=== PATIENT | female | born 1960 | race Caucasian/White ===

== ENCOUNTER 2020-10-07 11:59 | Inpatient (IN) | payer OTHER ==
[~2020-10-07] VITALS: Ht 167.6 cm; Wt 99.3 kg
[~2020-10-07 11:59] MED LIST: ALEVE220 M1 PO; CBD OIL TOP; MAGNESIUM L-LAC84 MG PO; VITAMIN B COMP1 EACH PO; VITAMIN D3250 MC2 PO; ZYPAN PO; [UNRECOGNIZED DRUG - OTHER] PO; [UNRECOGNIZED DRUG - OTHER] PO; [UNRECOGNIZED DRUG - OTHER] PO; [UNRECOGNIZED DRUG - OTHER] PO
[2020-10-07 14:00] VITALS: BP 146/71
[2020-10-07 17:28] VITALS: BP 140/60
--- NOTE | 2020-10-07 18:16 | NUR ---
PATIENT ARRIVED TO UNIT FROM PACU WITH A RIGHT TOTAL KNEE REPLACEMENT DONE BY DR. COLLAZO. PATIENT IS A&OX4 AND INSTRUCTED ON HOW TO USE THE CALL LIGHT. PATIENT VOICES MILD PAIN ON R KNEE. PATIENT EDUCATED ON ASKING FOR PAIN MEDICATION BEFORE PAIN GETS SEVERE. SPOUSE IS AT BEDSIDE. WILL ENDORSE TO NOC RN.
[2020-10-07 19:20] VITALS: BP 157/74
[2020-10-08 05:12] LABS: HEMATOCRIT 36.1 % (37.0-47.0); HEMOGLOBIN 12.2 gm/dL (12.0-15.0); MCH 30.8 pg (26.0-34.0); MCHC 33.7 g/dL (28.0-37.0); MCV 91.3 fL (80.0-100.0); RBC 3.95 mil/uL (4.20-5.00); RDW 13.2 % (10.5-14.5); WBC 11.2 thou/uL (4.0-11.0)
[2020-10-08 07:58] VITALS: BP 128/68
--- NOTE | 2020-10-08 08:09 | NUR ---
RECEIVED CARE OF THIS PATIENT AT 1900. PATIENT ALERT AND ORIENTED X4. ERNST DRESSING ON R KNEE INTACT WITH TEDS AND SCD'S. HAS POLAR ICE MACHINE. ACCUCHECK WAS 246, NO COVERAGE ORDERED. STATES CONTROLS BY DIET AT HOME. IV IN RH PATENT WITH FLUIDS INFUSING. C/O PAIN, MED GIVEN. SLEPT MOST OF NIGHT.
[2020-10-08 11:16] VITALS: BP 128/68
--- NOTE | 2020-10-08 11:54 | NUR ---
PT ADMITTED RELATED TO RIGHT TOTAL KNEE REPLACEMENT. CM REVIEWED CHART AND SPOKE WITH CARE TEAM. CM MET WITH PT AT BEDSIDE THIS DAY. PT APPEARED TO BE A&O X4. CM ROLE INTROUCED. PT INDICATED SHE RESIDES IN A HOUSE WITH HER SPOUSE WITH 6-7 STEPS TO ENTER AND NONE INSIDE. 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 PT INDICATED SHE HAD BEEN INDEPENENT WITH ADLS. PT INDICATED HER PCP IS DR. SOLIS MCDANIELS. SHE IS SET UP WITH OP PT WEDNESDAY AT [facility] IN [facility]. PT ANTICIPATES RETURNING HOME ONCE MEDICALLY STABLE. PT NEEDS A FWW FOR USE UPON DC. PT INDICATED NO PREFRENCE FOR PROVIDERS. [facility] ISSUED FWW. PT TO WORK WITH PT THIS AFTERNOON AND MAY DC AFTER IF PAIN IS MANAGED AND MOBILITY IS SAFE.
--- NOTE | 2020-10-08 15:18 | NUR ---
ASSUMED CARE OF PT AT 0700 THIS MORNING.
[2020-10-08 15:21] VITALS: BP 108/53
[2020-10-08 19:18] VITALS: BP 148/67
--- NOTE | 2020-10-09 02:37 | NUR ---
ASSESSED AT START OF SHIFT, PT A&OX4. C/O PAIN IN RT KNEE. RATES PAIN 6/10 PO PAIN MEDS GIVEN. IV INTACT AND SALINE LOCK. POLAR PACK, SCD'S, TEDHOSE IN PLACE. PT DENIES N/V. ANTICIPATING D/C TOMORROW. FALL PREC IN PLACE AND CALL LIGHT AT REACH. WILL CONT TO MONITOR.
[2020-10-09 05:25] LABS: HEMATOCRIT 34.7 % (37.0-47.0); HEMOGLOBIN 11.9 gm/dL (12.0-15.0); MCHC 34.3 g/dL (28.0-37.0); MCV 90.4 fL (80.0-100.0); RBC 3.83 mil/uL (4.20-5.00); RDW 12.9 % (10.5-14.5); WBC 6.3 thou/uL (4.0-11.0)
[2020-10-09 07:20] VITALS: BP 126/55
--- NOTE | 2020-10-09 12:29 | NUR ---
BOAR WITH PT WORKED WIHT PT THIS AM AND HE INDICATED THAT PT WAS STILL HAVING ISSUES WITH AMBULATION. HE IS TO SEE PT AGAIN THIS AFTERNOON. PT HAS HER FWW DELIVERED BY PP. IRVIN FOLLOWING REGARDING DC PLANNING.
--- NOTE | 2020-10-09 12:32 | O ---
[facility] [place] [address] OPERATIVE REPORT Name: BURTON CONNOR Room #: 458-P [facility] M.R.#: [id number] Admission: 10/07/20 Attend Phys: Renny Soni MD Discharge: Date of : 60 Report #: [id number] THIS REPORT FOR: cc: Renny Soni MD Physician not on staff Renny Soni MD ~ DOC #: [id number] Renny Soni MD DATE OF SERVICE: 10/07/2020 PREOPERATIVE DIAGNOSIS: Right knee osteoarthritis. POSTOPERATIVE DIAGNOSIS: Right knee osteoarthritis. PROCEDURE: Right total knee arthroplasty using Navio robotic-assisted. SURGEON: Renny Soni MD. CABLE TOOL OPERATOR: Lidia Alejandre PA-C. INDICATION FOR CABLE TOOL OPERATOR: Throughout the case, extensive retraction and manipulation of the knee was required. This was afforded to me by my volleyball assistant coach. ANESTHESIA: LMA with adductor canal block. IMPLANTS: Martinez [employer] Nephew size 6 Journey II BCS Oxinium femur, size 4, tibia, size 11 constrained polyethylene, size 32 patella. TOURNIQUET TIME: 57 minutes. ESTIMATED BLOOD LOSS: ____ mL COMPLICATIONS: None. SPECIMENS: None. CONDITION UPON LEAVING THE OR: Stable. INDICATIONS FOR PROCEDURE: The patient is a 59-year-old female with severe right knee osteoarthritis. She had failed conservative measures for this and after discussion with her, she elected for right total knee arthroplasty. DESCRIPTION OF PROCEDURE: Risks, benefits, alternatives, complications were discussed in detail with the patient including but not limited to risk of anesthesia, risk of damage to nerves, arteries, blood vessels, risk for infection, bleeding, risk for continued knee pain, need for reoperation. [facility] [address] [place] [address] OPERATIVE REPORT Name: GEETABURTON Room #: 458-P [facility] Bess Campos#: [id number] Admission: 10/07/20 Attend Phys: Renny Soni MD Discharge: Date of : 60 Report #: [id number] Informed consent was obtained from the patient. The right knee was appropriately marked in preoperative holding area. IV Ancef was given for preoperative antibiotics. She was brought to the operating room and placed in supine position on the operating table. LMA anesthesia was induced without complication. Tourniquet was placed on the right thigh. Right lower extremity was prepped and draped in normal sterile fashion and implants on. All in the operating room were in agreement. Right lower extremity was exsanguinated and tourniquet inflated. Tourniquet time was 57 minutes. Standard midline approach to the knee was made with 10 blade through the skin. Dissection was taken down sharply to the fascia. Deep flaps were developed medially and laterally. A fresh 10 blade was used to make a medial parapatellar arthrotomy and the knee was inspected. There was severe tricompartmental osteoarthritis. ACL and PCL were removed sharply. Reference pins were placed in the femur and the tibia and the knee was digitally mapped using [employer] robotic system. Intraoperative plan was made and the femur was sized and found to be a size 6, tibia was found to be a size 4 with a 10 spacer. After acceptance of the intraoperative plan, distal femoral cut was made with a Navio bur and the distal femoral cutting block was pinned in place and chamfer cuts were made. Attention was turned to the tibia. Remainder of the menisci removed with Bovie cautery. Tibial resection guide was pinned in place using Navio for replacement. Tibial resection was made. After this, flexion and extension gaps were checked and found to be somewhat tight medially and a medial release was performed with subperiosteal dissection of the MCL off the medial plateau and a resection of the medial tibial plateau osteophyte. This balanced the medial side well. After this, tibia was sized and found to be a size 4. Size 4 tibial trial was placed, pinned and punch. A size 6 femoral trial was placed and the box cut was made. This was then trialed with a size 10 and then a size 11 polyethylene. Size 11 polyethylene demonstrated 1-2 mm laxity medially throughout range of motion of the knee. She did demonstrate up to 4 mm of laxity laterally. It was felt we can make up for this with a constrained implant. A 9 mm of bone was resected from the posterior surface of the patella and a size 32 patellar trial button was placed. Knee was taken through range of motion, found to be stable, found to have good patellar tracking. Trial components were removed. Bone ends thoroughly irrigated with normal saline. Final size 4, tibia size 6 Journey II BCS Oxinium femur and a size 32 patella were cemented in place using standard cementation techniques. While the cement cured, a periarticular injection consisting of morphine, ropivacaine, epinephrine, Toradol was placed around the knee joint capsule. After the cement cured, tourniquet was deflated. Hemostasis was obtained with Bovie cautery. A final size 11 constrained polyethylene was placed. A gram of vancomycin was placed deep in the joint, fascia was closed with 0 Vicryl. Skin was closed with 2-0 Vicryl, skin johnathon and a ERNST dressing was applied. The patient tolerated this procedure well and went to the recovery room under care of anesthesia postoperatively. Renny Soni MD [address] [address] OPERATIVE REPORT Name: BURTON CONNOR Room #: 458-P [facility] Bess M.R.#: [id number] Admission: 10/07/20 Attend Phys: Renny Soni MD Discharge: Date of : 60 Report #: [id number] [facility]/MELINDA/ANI <ELECTRONICALLY SIGNED> By: Renny Soni MD 10/09/20 1232 1727 195 Renny Soni MD /nt
--- NOTE | 2020-10-09 12:51 | NUR ---
ASSUMED PT CARE AROUND 0700.PT ALERT X ORIENTED X4. ON ROOM AIR. IV RT HAND SALINE LOCKED. 1 X PERSON ASST WITH WALKER.PICCO DRESIING/TEDS/POLAR ICE PACK/SCDS IN PLACE. NO SKIN ISSUES. PT WORKED WITH PHYSICAL THERAPY, WAS NOT ABLE TO CLIMB STEPS, GOT DIZZY AND CLAMMY WHILE TRYING STEPS. FALL PRECAUTION IN PLACE. CALL IN REACH. WILL CALL APPROPRIATELY. WILL CONT TO MONITOR. ACCUCHECK AND ACHS.
[2020-10-09 15:25] VITALS: BP 145/60
[2020-10-09 15:34] LABS: CALCIUM 9.9 mg/dL (8.5-10.1); CREATININE 0.9 mg/dL (0.6-1.0); POTASSIUM 4.4 mmol/L (3.5-5.1)
[2020-10-09 17:40] LABS: FOLIC ACID 27.1 ng/mL (8.6-58.9)
[2020-10-09 19:19] VITALS: BP 147/57
[2020-10-10 01:06] LABS: GLYCOHEMOGLOBIN (HGB A1C) 7.2 % (4.8-5.6)
[2020-10-10 05:57] LABS: ABSOLUTE NEUTROPHILS 5.7 thou/uL (1.4-8.2); BASOPHILS 0.2 % (0.0-2.0); EOSINOPHILS 0.5 % (0.0-3.0); HEMATOCRIT 36.6 % (37.0-47.0); HEMOGLOBIN 12.4 gm/dL (12.0-15.0); LYMPHOCYTES 22.1 % (24.0-44.0); MCH 30.7 pg (26.0-34.0); MCV 90.4 fL (80.0-100.0); MONOCYTES 7.3 % (1.0-8.0); PLATELET COUNT 203 thou/uL (150-400); POLYS 69.9 % (36.0-66.0); RBC 4.04 mil/uL (4.20-5.00); RDW 12.8 % (10.5-14.5); WBC 8.1 thou/uL (4.0-11.0)
--- NOTE | 2020-10-10 06:00 | NUR ---
Pt. rested quietly at intervals during the night when checked on during frequent rounds. She was given po pain med (see emar) for c/o right knee pain (see emar) with some relief noted. Dressing to right knee is intact. Bed alarm is on.
[2020-10-10 06:14] LABS: CALCIUM 10.3 mg/dL (8.5-10.1); CREATININE 0.8 mg/dL (0.6-1.0); MAGNESIUM 1.5 mg/dL (1.8-2.4); POTASSIUM 4.1 mmol/L (3.5-5.1)
[2020-10-10 07:30] VITALS: BP 141/63
--- NOTE | 2020-10-10 09:00 | NUR ---
PT SITTING UP IN CHAIR WITH POLAR CARE TO RT KNEE. PT STATED HER PAIN LEVEL IS 5 ON 1-10 SCALE. PT STATED SHE DID TAKE NARCOTIC AND GOT REALY DIZZY WITH IT AND NAUSEATED. PT HAS IV FLUIDS NS RUNNING AT 126ML/HR. PT WANTING TO TAKE TYLENOL THIS AM. PT GETTING READY TO WORK WITH PHYSICAL THERAPY AND WANTING TO USE BSC TO VOID OR HAVE BM. PT STATED THE MIRALAX IS WORKING. PT UP VIA WALKER TO BSC X1 STAND-BY ASSIST.
--- NOTE | 2020-10-10 09:07 | NUR ---
PT GETTING MAG 2GM AT THIS TIME IV X1. PT STATED SHE DOES TAKE MAG AT HOME PO. PT BACK FROM THERAPY.
--- NOTE | 2020-10-10 09:08 | NUR ---
ADM TYLENOL 325MG 2 TABS PO FOR PAIN TO RT KNEE OF 5 ON 1-10 SCALE. ABLE TO SL IV PER DR. DYSON. PT GETTING READY TO WORK WITH THERAPY.
[2020-10-10 09:10] VITALS: BP 141/63
--- NOTE | 2020-10-10 11:56 | NUR ---
CARE TEAM INDICATED THAT PT IS MEDICALLY STABLE TO DC HOME TO SELF CARE THIS DAY. PT IS SET UP WITH OUTPATIENT PT. PT WAS ISSUED A FWW BY [facility]. PT IS TO DC HOME THIS DAY. PT'S FAMILY TO PROVIDE TRANSPORT HOME. NO OTHER CM INTERVENTION INDICATED CASE CLOSED.
--- NOTE | 2020-10-10 12:49 | NUR ---
ADM HYDROCODONE 5MG PO FOR PAIN TO RT KNEE OF 5 ON 1-10 SCALE. PT STATED SHE IS READY TO GO HOME.
--- NOTE | 2020-10-10 15:06 | NUR ---
PT GETTING READY TO LEAVE PT VERBALY UNDERSTOOD D/C ORDERS. ADM TYLENOL 325MG 2 TABS PO FOR PAIN OF 3 ON 1-10 SCALE TO RT KNEE. PT LEFT VIA W/C TO CAR. PT LEFT WITH POLAR CARE.
== END 2020-10-10 15:20 | disposition home or self-care (01) | DRG 470 ==
LOC: OR 11:59 → 4W 17:03
PROVIDERS: Nurse Practitioner; ADMIT Orthopaedic Surgery; ATTEND Orthopaedic Surgery
DX: M17.11 Unilateral primary osteoarthritis, right knee (principal); R73.9 Hyperglycemia, unspecified; T40.605A Adverse effect of unspecified narcotics, initial encounter; Y92.89 Other specified places as the place of occurrence of the external cause; Z86.73 Personal history of transient ischemic attack (TIA), and cerebral infarction without residual deficits
CPT/HCPCS: 10047; 50010; 50101; 50415; 51130; 51225; 51320; 51412; 52001; 52282; 53000; 53078; 53365; 56527; 56528; 57095; 57103; 57110; 57127; 57180; 62110; 62900; 70005

== ENCOUNTER → 2021-04-14 | Outpatient (CLI) | payer OTHER ==
[~2021-04-14] MED LIST changes: +BIOTIN10000 MC1 PO; +TRAMADOL 50 MG50 MG PO
[2021-04-14 11:24] LABS: HEMATOCRIT 41.7 % (37.0-47.0); HEMOGLOBIN 14.5 gm/dL (12.0-15.0); MCH 30.4 pg (26.0-34.0); MCHC 34.7 g/dL (28.0-37.0); MCV 87.6 fL (80.0-100.0); RBC 4.76 mil/uL (4.20-5.00); RDW 13.7 % (10.5-14.5); WBC 5.1 thou/uL (4.0-11.0)
--- NOTE | 2021-04-14 11:35 | EKG ---
[address] [address] ELECTROCARDIOGRAM REPORT Name: GEETABURTON Sharmaine Room #: [facility]#: [id number] Admission: 04/14/21 Attend Phys: Renny Soni MD Discharge: Date of : 60 Report #: [id number] [facility] Test Date: 2021-04-14 Test Time: 11:19:02 Pat Name: BURTON CONNOR Department: Room: Gender: F Eyeglass Frames Polisher: Kena LOZOYA : 1960 Requested By: Renny Soni Order Number: [id number] MD: Flavio Jimenez Measurements Intervals [place] Rate: 69 P: 48 DC: 167 QRS: -16 QRSD: 87 T: 29 QT: 379 QTc: 406 Interpretive Statements Sinus rhythm Borderline left axis deviation Compared to ECG 10/02/2020 11:16:58 No significant changes Electronically Signed On 04-14-2021 11:35:23 [employer]SEM[employer]ER by Flavio Jimenez [email or web address] <ELECTRONICALLY SIGNED> By: Flavio Jimenez MD, [facility] 04/14/21 1135 D: [id number] 18 Flavio Jimenez MD, FACC /EPI
[2021-04-14 11:41] LABS: ALBUMIN 4.1 g/dL (3.4-5.0); CALCIUM 10.3 mg/dL (8.5-10.1); CREATININE 0.8 mg/dL (0.6-1.0); POTASSIUM 4.1 mmol/L (3.5-5.1)
[2021-04-14 11:42] LABS: INR 0.97; PROTIME 10.6 Seconds (10.5-12.1)
[2021-04-14 11:46] LABS: URINE BILIRUBIN NEGATIVE (Negative); URINE BLOOD NEGATIVE (Negative); URINE CLARITY CLEAR; URINE COLOR YELLOW; URINE GLUCOSE-RANDOM* NEGATIVE (Negative); URINE KETONES NEGATIVE (Negative); URINE LEUKOCYTES-REFLEX NEGATIVE (Negative); URINE NITRITE-REFLEX NEGATIVE (Negative); URINE PROTEIN (DIPSTICK) NEGATIVE (Negative); URINE SPECIFIC GRAVITY 1.015 (1.005-1.035); URINE UROBILINOGEN 0.2 E.U./dl (0.2-1.0)
[2021-04-15 01:06] LABS: GLYCOHEMOGLOBIN (HGB A1C) 8.4 % (4.8-5.6)
== END ==
LOC: PAC 05:57
PROVIDERS: ATTEND Orthopaedic Surgery
DX: M17.11 Unilateral primary osteoarthritis, right knee (principal)

== ENCOUNTER 2021-04-21 09:12 | Observation (INO) | payer OTHER ==
[~2021-04-21] VITALS: Ht 167.6 cm; Wt 98.0 kg
[2021-04-21 11:50] VITALS: BP 156/66
[2021-04-21 16:10] VITALS: BP 148/74
--- NOTE | 2021-04-21 18:20 | NUR ---
Pt transferred from unit from PACU. Pt a&ox4. Dressing c/d/i. Polar care in place. YENY and SCDs in place. IVF infusing. Pt is diabetic. Blood sugar 284 befire dinner. Surgeon radha. Hospitalist consulted. IVF switched no normal saline. Insulin administered. Call light within reach. Family at bedside. Will continue to monitor.
[2021-04-21 19:52] VITALS: BP 132/61
--- NOTE | 2021-04-22 04:00 | NUR ---
Left knee with ERNST drsg c/d/i, as well as polar melany.Denies any nausea or vomiting.RA and in no signs of distress.Voiding adequately. Afebrile. Left foot with good CSM.
[2021-04-22 04:23] VITALS: BP 122/65
[2021-04-22 05:08] LABS: ABSOLUTE NEUTROPHILS 8.5 thou/uL (1.4-8.2); BASOPHILS 0.1 % (0.0-2.0); HEMATOCRIT 35.5 % (37.0-47.0); HEMOGLOBIN 12.2 gm/dL (12.0-15.0); LYMPHOCYTES 10.4 % (24.0-44.0); MCH 30.5 pg (26.0-34.0); MCHC 34.5 g/dL (28.0-37.0); MCV 88.4 fL (80.0-100.0); MONOCYTES 5.1 % (1.0-8.0); PLATELET COUNT 213 thou/uL (150-400); POLYS 84.4 % (36.0-66.0); RBC 4.01 mil/uL (4.20-5.00); RDW 13.5 % (10.5-14.5)
[2021-04-22 05:39] LABS: CALCIUM 9.4 mg/dL (8.5-10.1); CREATININE 0.8 mg/dL (0.6-1.0); MAGNESIUM 1.7 mg/dL (1.8-2.4); POTASSIUM 4.2 mmol/L (3.5-5.1)
[2021-04-22 07:10] VITALS: BP 152/75
--- NOTE | 2021-04-22 09:38 | NUR ---
Assumed care of pt at 0700. Pt a&ox4. Pain controlled with prn pain medications. Polar care in place. IVF infusing. Patient will work with physical therapy. Possible d/c to home today if cleared by physical therapy. Call light within reach. Fall precautions in place. Will continue to monitor.
--- NOTE | 2021-04-22 09:45 | NUR ---
60 year old female, had a Navio total knee elective surgery yesterday. Cm visited with her at bedside. She is A & o x 4, pleasant and able to make her needs know. Has 5 steps to enter the home from the back door, then all on the main level. Independent. Has a walker. manage her own medication. Drives vehicle. No hh or skilled rehab in the past. Have outpatient therapy set up at [facility] on Wednesday04/23/21 per irene.
[2021-04-22 12:04] VITALS: BP 152/75
--- NOTE | 2021-04-24 10:49 | O ---
[facility] [place] [address] OPERATIVE REPORT Name: BURTON CONNOR Room #: 441-P [facility] Bess Campos#: [id number] Admission: 04/21/21 Attend Phys: Rneny Soni MD Discharge: 04/22/21 Date of : 60 Report #: [id number] THIS REPORT FOR: cc: FAM - Family physician unknown FAM - Family physician unknown Renny Soni MD ~ DATE OF SERVICE: 04/21/2021 PREOPERATIVE DIAGNOSIS: Left knee osteoarthritis. POSTOPERATIVE DIAGNOSIS: Left knee osteoarthritis. PROCEDURE: Left total knee arthroplasty using Navio robotic assistance. SURGEON: Renny Carreno MD BELT NOTCHER: Lidia Alejandre PA-C. INDICATION FOR BELT NOTCHER: Throughout the case, extensive retraction, manipulation of the knee was required. This was afforded to me by my bindery assistant. ANESTHESIA: LMA with adductor canal block. IMPLANTS: Martinez [employer] Nephew size 6 Journey II BCS Oxinium femur, size 4 tibia, size 13 constrained polyethylene and size 32 patella. TOURNIQUET TIME: 65 minutes. ESTIMATED BLOOD LOSS: 25 mL. COMPLICATIONS: None. SPECIMENS: None. CONDITION UPON LEAVING THE OR: Stable. INDICATIONS FOR PROCEDURE: The patient is a 60-year-old female with severe left knee osteoarthritis. She had failed conservative measures for this and after discussion with her, she elected for left total knee arthroplasty. DESCRIPTION OF PROCEDURE: Risks, benefits, alternatives, complications were discussed in detail with the patient including but not limited to risk of anesthesia, risk of damage to nerves, arteries, blood vessels, risk for infection, bleeding, risk for continued knee pain and need for reoperation. Informed consent was obtained from the patient. Left knee was appropriately marked in the preoperative holding area. IV Ancef was given for preoperative [facility] [address] [place] [address] OPERATIVE REPORT Name: GEETABURTON STACY Room #: 441-P [facility] Bess Campos#: [id number] Admission: 04/21/21 Attend Phys: Renny Soni MD Discharge: 04/22/21 Date of : 60 Report #: [id number] antibiotics. Adductor canal block was placed by Anesthesia. She was brought to the operating room and placed in supine position on the operating table. LMA anesthesia was induced without complication. Tourniquet was placed on the left thigh. Left lower extremity was prepped and draped in normal sterile fashion. Timeout was performed properly identifying the patient and procedure as well as the instrumentation and implants. All in the operating room were in agreement. Left lower extremity was exsanguinated, tourniquet was inflated. Tourniquet time was 65 minutes. Standard midline approach to the knee was made with 10 blade through the skin. Dissection was taken down sharply to the fascia and deep flaps were developed medially and laterally. Fresh 10 blade was used to make a medial parapatellar arthrotomy and the knee was inspected. There was severe tricompartmental osteoarthritis. ACL and PCL were removed sharply. Reference pins were placed in the femur and the tibia. The knee was then digitally mapped using the [employer] robotic system. Intraoperative plan was made. We sized the size 6 femur, the size 4 tibia and a 10 spacer after acceptance of the intraoperative plan. The distal femoral cut was made with Navio bur. Distal femoral cutting block was pinned in place and chamfer cuts were made. Attention was turned to the tibia. Remainder of the menisci removed with Bovie cautery. Tibial resection guide was pinned in place using Navio placement and tibial resection was made. Flexion and extension gaps were checked and found to have good balance in flexion and extension both medially and laterally. Tibia sized, found to be a size 4. Size 4 tibial trial was placed, pinned and punched. Size 6 femoral trial was placed and a box cut was made. This was then trialed with a size 10 up to a size 13 polyethylene. Size 13 polyethylene demonstrated the best stability and range of motion. She did have some opening laterally and deep flexion. It was felt we could make up for this with the final implant. A 9 mm of bone was resected from the posterior surface of the patella and a size 32 patellar trial button was placed. Knee was taken through range of motion, found to be stable, found to have good patellar tracking. Trial components were removed. Bone ends were thoroughly irrigated with normal saline. A final size 4 tibia, size 6 Journey II BCS Oxinium femur and a size 32 patella were cemented in place using standard cementation techniques. While the cement cured, a periarticular injection consisting of morphine, ropivacaine, epinephrine, Toradol was placed around the knee joint capsule. After the cement cured, the tourniquet was deflated. Hemostasis was obtained with Bovie cautery. Final size 13 constrained polyethylene was placed. A gram of vancomycin was placed deep in the joint. The fascia was closed with 0 Vicryl. Skin was closed with 2-0 Vicryl, skin staple and a ERNST dressing was applied. The patient tolerated this procedure well and went to the recovery room under the care of Anesthesia postoperatively. <ELECTRONICALLY SIGNED> By: Renny Soni MD 04/24/21 1049 0613 0628 Renny Soni MD /nt
== END 2021-04-22 16:06 | disposition home or self-care (01) ==
LOC: OR 09:12 → TBA 09:22 → OR 13:08 → 4S 15:25 → OR 15:26 → 4S 04-22 16:06
PROVIDERS: Nurse Practitioner; ADMIT Orthopaedic Surgery; ATTEND Orthopaedic Surgery
DX: M17.12 Unilateral primary osteoarthritis, left knee (principal); M17.11 Unilateral primary osteoarthritis, right knee; M19.071 Primary osteoarthritis, right ankle and foot; M24.561 Contracture, right knee; M24.562 Contracture, left knee; E11.9 Type 2 diabetes mellitus without complications; Z79.82 Long term (current) use of aspirin; Z79.899 Other long term (current) drug therapy
CPT/HCPCS: 27447; S2900; 50010; 50101; 50415; 50954; 51130; 51225; 51320; 51412; 52001; 52282; 53000; 53078; 53365; 56527; 56528; 57095; 57103; 57110; 57127; 57180; 62110; 62900; 64043; 65060; 70005